=== PATIENT | female | born 1995 | race Caucasian/White ===

== ENCOUNTER 2017-03-02 06:46 | Observation (INO) ==
--- NOTE | 2017-03-02 10:01 | Internal Med History&Physical ---
Date of Encounter: 03/02/17 Internal Medicine - H&P: HPI History of present illness: Ms. Allison is a 21 year old female Past Med Surg Social Fam HX - Past Medical History Medical history: diabetes, hepatitis, other Psychiatric history: anxiety, ADHD, depression - Social History Smoking Status: Current every day smoker Packs per day: 1 Smokeless Tobacco Status: No All Systems PM: A 10-system review of systems was performed and is negative for pertinent findings except as documented above in the HPI. - Constitutional Vitals: Temp Pulse Resp BP Pulse Ox 97.8 F 65 15 100/43 100 03/02/17 08:52 03/02/17 08:52 03/02/17 08:52 03/02/17 08:52 03/02/17 08:52
[2017-03-02] MEDS ORDERED: Naloxone 0.4 MG/ML INJ IVP PRN (11:16)
[2017-03-02] MEDS ORDERED: 0.9 % Sodium Chloride 1,000 ML IVC SCH (11:30)
--- NOTE | 2017-03-02 11:50 | Internal Med History&Physical ---
Date of Encounter: 03/02/17 Time of Encounter: 11:45 Assessment and Plan (1) New onset seizure Current visit: Yes Status: Acute 1 no hx of seizure or head injury- continue with seizure precautions 2 CT of head negative - PACS- will obtain MRI per neurology recommendation 3 consult neurology spoke with DR Rome- he will see patient - and patient will need outpt follow up 4 cont Keppra per neurology recommendation 5 we will consult psych- suspect possible pseudoseizure 6 will obtain drug screen (2) Asthma Current visit: Yes Status: Acute presently stable - bronchodilators as needed Qualifiers: Asthma severity: unspecified severity Asthma persistence: unspecified Asthma complication type: uncomplicated Qualified Code(s): J45.909 - Unspecified asthma, uncomplicated (3) PTSD (post-traumatic stress disorder) Current visit: Yes Status: Chronic 1 Hx of PTSD- Has been displaying odd behavior as well as hallucinations - will have psych see patient (4) DVT prophylaxis Current visit: Yes Status: Acute lovenox subcutaneous Internal Medicine - H&P: HPI Chief complaint: Seizures Admitted From: Emergency Dept Plans for Post Hospital Care: Home History of present illness: Ms. Allison is a 21 year old female hx of asthma former drug abuse and hepatitis . Information obtained from medical records and who is at bedside dt patient is groggy According to records for 2 days patient has been experiencing tonic clonic seizure like activity. Family described as "Flailing around and staring off no loss of bowel or bladder. Family also reports hallucinations and odd behavior describes as "paranoid" amily reports that seizures were prevoked by cigarette smoking, so they would withhold cigarettes. This occurred approx 4-5 times over 2days. She was seen at 2 different [facility] one dx her with bronchitis. She was seen at [facility] who gave her fosphenytoin originally wanted transfer her to a facility that had neurology she declined went home and had another seizure She presented back to [facility] was given Keppra. CT scan was negative She was transferred to this facility for further evaluation. She had no past hx of seizures, no head injury or family hx of seizure. Presently there is no seizure activity she is lethargic and does not interact during assessment Past Med Surg Social Fam HX - Past Medical History Medical history: diabetes, hepatitis, other Psychiatric history: anxiety, ADHD, depression - Social History Smoking Status: Current every day smoker Packs per day: 1 Smokeless Tobacco Status: No - Family History Grandfather Living Status: Cause of : Brain cancer Internal Medicine - H&P: Meds Escitalopram [Lexapro] 20 mg PO DAILY 03/02/17 [History] Levonorgestrel-Ethin Estradiol [Vienva-28 Tablet] 1 tab PO DAILY 03/02/17 [ History] 3 Allergy/AdvReac Type Severity Reaction Status Date / Time No Known Allergies Allergy Verified 03/02/17 10:15 ROS unobtainable: due to mental status All Systems PM: A 10-system review of systems was performed and is negative for pertinent findings except as documented above in the HPI. - Constitutional Vitals: Temp Pulse Resp BP Pulse Ox 97.8 F 65 15 100/43 100 03/02/17 08:52 03/02/17 08:52 03/02/17 08:52 03/02/17 08:52 03/02/17 08:52 General appearance: Present: A&O X 2 - Head Head exam: Present: atraumatic, normocephalic - Eye Eye exam: Present: PERRL, conjuntiva pink, sclera anicteric Pupils: Present: PERRL - Respiratory Respiratory exam: Present: CTAB. Absent: accessory muscle use, rales, rhonchi, wheezes - Cardiovascular Cardiovascular exam: Present: RRR, +S1, +S2. Absent: diastolic murmur, gallop, rubs, systolic murmur - GI/Abdominal GI/Abdominal exam: Present: normal bowel sounds, soft, no peritoneal signs. Absent: distended, tenderness - Extremities Exam Extremities exam: Present: warm, radial pulses palpable and symmetrical. Absent : calf tenderness, cyanotic, pedal edema - Neurological Exam Neurological exam: Present: CN II-XII intact, no focal deficits. Absent: pronater drift, facial droop, speech deficit - Skin Skin exam: Present: dry, intact Internal Med - H&P Results - Labs Labs: chem 7 Na 144 K 3.8 chl 111 Co2 25 BUN 9 glucose 113 creatinine 0.72 cbc wbc 8.4 Hgb 11.8 HCT 36.4 platlets 98 lactate 0.8 - EKG Data EKG shows normal: sinus rhythm - EKG Data Prior EKG available for review: no - Diagnostic Studies Other Images Additional comments: CT of head reviewed on PACS with Dr Gramajo, No intracranial abnormalities
[2017-03-02 13:04] LABS: Bilirubin,Urine Negative (Negative); Blood,Urine Negative (Negative); Clarity,Urine Clear (Clear); Color,Urine Yellow (Yellow); Glucose,Urine (UA) Normal (Normal); Ketones,Urine Negative (Negative); Leukocyte Esterase,Urine Negative (Negative); Nitrite,Urine Negative (Negative); Protein,Urine Negative (Neg-Trace); Specific Gravity,Urine 1.017 (1.010-1.025); Urobilinogen,Urine Normal (Normal)
[2017-03-02 13:10] LABS: Amphetamine Screen,Urine Negative ng/mL (Cutoff=1000); Barbiturate Screen,Urine Negative ng/mL (Cutoff=200); Benzodiazepines Screen,Urine Negative ng/mL (Cutoff=200); Cannabinoid Screen,Urine Negative ng/mL (Cutoff = 50); Cocaine Screen,Urine Negative ng/mL (Cutoff= 300); Opiate Screen,Urine Negative ng/mL (Cutoff=300); Phencyclidine Screen,Urine Negative ng/mL (Cutoff=25)
[2017-03-02] MEDS ORDERED: levETIRAcetam 1,000 MG in 0.9 % Sodium Chloride 100 ML IVPB SCH (16:00)
[2017-03-02 18:30] VITALS: BP 113/62
--- NOTE | 2017-03-02 20:29 | Event Note ---
Date of Encounter: 03/02/17 Time of Encounter: 19:00 Was notified per nursing staff that patient has been experiencing seizure activity. Family describes that patient legs jerk and that she is shaking the bed. Nursing staff only witness patient staring and at times hand shaking. Presently the patient is groggy and arouses to verbal stimuli. She falls asleep during conversation. This has occurred 2 times today. I did speak with Dr Rome via telephone and update on patient status. He felt that since she continue to have seizure activity despite the anti seizure medication, Ativan would only suppress seizure, and once she would be discharged home she would recurrent seizure. He advised to transfer to [place] for further evaluation. I did discuss this with Dr Carpenter who spoke with family at bedside. They did agree to transfer.
--- NOTE | 2017-03-02 21:22 | Discharge Summary ---
<Laure Ryan - Last Filed: 03/02/17 22:18> Date of Encounter: 03/02/17 Time of Encounter: 21:20 - Discharge Diagnosis (1) New onset seizure Priority: Primary Status: Acute Comments: 1 no hx of seizure or head injury- continue with seizure precautions 2 CT of head negative - PACS- will obtain MRI per neurology recommendation 3 consult neurology spoke with DR Rome- he will see patient - and patient will need outpt follow up 4 cont Keppra per neurology recommendation 5 we will consult psych- suspect possible pseudoseizure 6 will obtain drug screen (2) Asthma Priority: Secondary Status: Chronic Comments: presently stable - bronchodilators as needed Qualifiers: Asthma severity: unspecified severity Asthma persistence: unspecified Asthma complication type: uncomplicated Qualified Code(s): J45.909 - Unspecified asthma, uncomplicated (3) PTSD (post-traumatic stress disorder) Priority: Secondary Status: Chronic Comments: 1 Hx of PTSD- Has been displaying odd behavior as well as hallucinations - will have psych see patient - Discharge Medications Home Medications: Escitalopram [Lexapro] 20 mg PO DAILY 03/02/17 [History] Levonorgestrel-Ethin Estradiol [Vienva-28 Tablet] 1 tab PO DAILY 03/02/17 [ History] Allergies/Adverse Reactions: 3 Allergy/AdvReac Type Severity Reaction Status Date / Time No Known Allergies Allergy Verified 03/02/17 10:15 Procedures/tests Complete & Pending: Procedures Performed prior 72 hours Category Date Time Status MR head/brain wo con [MR] Stat MRI 03/02/17 13:10 Draft Date of admission: 03/02/17 08:30 Primary care physician: Matthew Carranza MD Consults: 03/02/17 13:12 Consult to Neurology [CONS] Routine Consulting Provider: [facility] Reason for Consult: new onset seizure Time Notified: 13:12 Call Completed: Yes 03/02/17 13:51 Consult to Psychiatry [CONS] Stat Consulting Provider: [facility] Reason for Consult: hallucinations,PTSD Time Notified: 13:53 Call Completed: Yes Discharging clinician: Laure Ryan Anticipated date of discharge: 03/02/17 - Patient Status Disposition: Transfer Intermediate Care Fac Condition: Good Functional capacity at discharge: bed bound Overall status at discharge: patient is not back to baseline - Discharge Instructions Follow Up With: Matthew Carranza MD [Primary Care Provider] - - Diet and Activity Activity: increase activity as tolerated Diet: advance to your usual diet Hospital course: Ms. Allison is a 21 year old female hx of asthma former drug abuse and hepatitis . Information obtained from medical records and who is at bedside dt patient is groggy According to records for 2 days patient has been experiencing tonic clonic seizure like activity. Family described as "Flailing around and staring off no loss of bowel however loss bladder X1 episode. Family also reports hallucinations and odd behavior describes as "paranoid" family reports that seizures were prevoked by cigarette smoking, so they would withhold cigarettes. This occurred approx 4-5 times over 2days. She was seen at 2 different [facility] one dx her with bronchitis. She was seen at [facility] who gave her fosphenytoin originally wanted transfer her to a facility that had neurology she declined went home and had another seizure She presented back to [facility] was given Keppra. CT scan was negative She was transferred to this facility for further evaluation. She had no past hx of seizures, no head injury or family hx of seizure. Throughout admission today patient has been lethargic arouses to tactile stimuli, follows simple commands. Cranial nerves 2- 12 intact. Family notified nursing staff on 2 separate occasions that patient had episode of lower leg jerking and shaking the bed . Nursing staff witnessed the patient staring off, or hands shaking while awake/aware of surroundings. She did receive Keppra 1000mg IV and had a MRI of head that was negative. Dr Rome neurologist was updated on patient status He felt that since she continued to have seizure activity despite Keppra Ativan would only suppress/mask seizure, Once she would be discharged home she would recurrent seizure.Also to add to the complexity of her treatment plan is her psychiatric background, which he felt she would benefit from more advanced neurological evaluation. He advised to transfer to [place] for further evaluation. Dr Carpenter spoke with family concerning transfer which they agree. - Time Spent with Patient Total time spent providing and/or coordinating discharge services: - Constitutional Vitals: Temp Pulse Resp BP Pulse Ox 98.4 F 63 15 113/62 100 03/02/17 18:28 03/02/17 18:28 03/02/17 18:28 03/02/17 18:28 03/02/17 18:28 General appearance: Present: A&O X 2 - Head Head exam: Present: atraumatic, normocephalic - Eye Eye exam: Present: PERRL, conjuntiva pink, sclera anicteric Pupils: Present: PERRL - Neck Neck exam general surgery: Present: supple, trachea midline. Absent: lymphadenopathy - Respiratory Respiratory exam: Present: CTAB. Absent: accessory muscle use, rales, rhonchi, wheezes - Cardiovascular Cardiovascular exam: Present: RRR, +S1, +S2. Absent: diastolic murmur, gallop, rubs, systolic murmur - GI/Abdominal GI/Abdominal exam: Present: normal bowel sounds, soft, no peritoneal signs. Absent: distended, tenderness - Extremities Exam Extremities exam: Present: warm, radial pulses palpable and symmetrical. Absent : calf tenderness, cyanotic, pedal edema - Neurological Exam Neurological exam: Present: CN II-XII intact, oriented X3, no focal deficits. Absent: pronater drift, facial droop, speech deficit - Skin Skin exam: Present: dry, intact <Ghanem,Julissa Rheem - Last Filed: 03/02/17 22:30> Date of Encounter: 03/02/17 Procedures/tests Complete & Pending: Procedures Performed prior 72 hours Category Date Time Status MR head/brain wo con [MR] Stat MRI 03/02/17 13:10 Draft Date of admission: 03/02/17 08:30 Primary care physician: Matthew Carranza MD Consults: 03/02/17 13:12 Consult to Neurology [CONS] Routine Consulting Provider: [facility] Reason for Consult: new onset seizure Time Notified: 13:12 Call Completed: Yes 03/02/17 13:51 Consult to Psychiatry [CONS] Stat Consulting Provider: [facility] Reason for Consult: hallucinations,PTSD Time Notified: 13:53 Call Completed: Yes Hospital course: Ms. Allison is a 21 year old female - Time Spent with Patient Total time spent providing and/or coordinating discharge services: - Constitutional Vitals: Temp Pulse Resp BP Pulse Ox 98.4 F 63 15 113/62 100 03/02/17 18:28 03/02/17 18:28 03/02/17 18:28 03/02/17 18:28 03/02/17 18:28 - Attending Attestation I examined this patient and my medical decision-making was reviewed with the Resident Physician. I agree with the documented findings, disposition and treatment plan as described except to the extent set forth below.
[2017-03-03 01:33] LABS: Basophils % 0.3 %; Eosinophils % 1.1 %
[2017-03-03 01:35] LABS: Eosinophils # 0.1 K/mcL (0.0-0.6); Hematocrit 39.7 % (35.3-44.9); Hemoglobin 12.3 g/dL (11.5-15.4); Immature Granulocytes % 0.2 % (0-4); Lymphocytes # 2.1 K/mcL (0.6-4.6); Lymphocytes % 32.1 %; Mean Corpuscular Hemoglobin 24.7 pg (28.0-33.3); Mean Corpuscular Volume 79.7 fL (83.0-100.0); Mean Platelet Volume 13.3 fL (9.4-12.4); Monocytes # 0.4 K/mcL (0.0-1.3); Monocytes % 6.8 %; Neutrophils # 3.8 K/mcL (1.6-8.9); Red Blood Count 4.98 M/mcL (3.82-4.97); Red Cell Distribution Width 13.7 % (11.5-14.5); Segmented Neutrophils % 59.5 %
[2017-03-03 02:24] LABS: BUN/Creatinine Ratio 7 (6-26); Blood Urea Nitrogen 5 mg/dL (6-20); Calcium 8.8 mg/dL (8.6-10.3); Carbon Dioxide 22 mEq/L (23-29); Chloride 109 mEq/L (98-107); Glucose 84 mg/dL (70-105); Osmolality,Calculated 280 (280-300); Potassium 3.9 mEq/L (3.5-5.1); Sodium 137 mEq/L (136-145); eGFR For African Americans > 60 (> 60); eGFR For Non-African Americans > 60 (> 60)
[2017-03-03 03:09] LABS: Platelet Count 81 K/mcL (140-400); Platelet Estimate Decreased (Normal)
[2017-03-03] MEDS ORDERED: *HR* Enoxaparin 40 MG/0.4 ML SYRINGE SQ SCH (06:00)
== END 2017-03-03 02:05 ==
LOC: 2NENU
PROVIDERS: ADMIT Student in an Organized Health Care Education/Training Program; ATTEND Hospitalist